=== PATIENT | male | born 1965 | race Two or more races ===

== ENCOUNTER 2025-04-24 08:22 | Inpatient (IN) | payer OTHER ==
[~2025-04-24] VITALS: Ht 188 cm; Wt 90.7 kg
[2025-04-24] MEDS ORDERED: XARELTO20 MG PO (09:24)
[2025-04-24] MEDS ORDERED: 0.9 % SODIUM CHLORIDE 1,000 ML IV STA (09:48)
[2025-04-24 10:43] LABS: BASO % 0.5 % (0.1-1.2); EOS # 0.07 (0.04-0.54); EOS % 1.1 % (0.7-7.0); LYMPH # 1.37 (1.18-3.74); LYMPH % 20.8 % (19.3-53.1); MEAN PLATELET VOLUME 10.20 fl (9.4-12.4); MONO # 0.56 (0.24-0.82); MONO % 8.5 % (4.7-12.5); NEUT # 4.54 (1.56-6.13); NEUT % 68.8 % (34.0-71.1); RED CELL DISTRIBUTION WIDTH 11.9 % (11.6-14.4)
[2025-04-24 11:11] LABS: INR 1.07
[2025-04-24 11:12] LABS: BUN CREA RATIO 19.0 (7.0-25.0); CREATININE SERUM 0.97 mg/dL (0.70-1.30); GFR 79.22; GLUCOSE FASTING 111.0 mg/dL (65-100); OSMOLALITY SERUM 286.0 MOSM/KG (275-295)
[2025-04-24] MEDS ORDERED: ROSUVASTATIN CALCIUM 10 MG TABLET PO SCH (12:25)
[2025-04-24] MEDS ORDERED: FAMOTIDINE/PF 20 MG in 0.9 % SODIUM CHLORIDE 8 ML IV PUSH SCH (12:25)
[2025-04-24] MEDS ORDERED: ENOXAPARIN SODIUM 80 MG/0.8 ML SYRINGE SUBCUTANEO SCH (12:25)
[2025-04-24] MEDS ORDERED: ACETAMINOPHEN 500 MG GEL..CAP PO PRN (12:30)
[2025-04-24] MEDS ORDERED: 0.9 % SODIUM CHLORIDE 1,000 ML IV SCH (12:30)
[2025-04-24] MEDS ORDERED: ENOXAPARIN SODIUM 80 MG/0.8 ML SYRINGE SUBCUTANEO ONE (14:12)
[2025-04-24] MEDS ORDERED: FAMOTIDINE/PF 20 MG/2 ML VIAL ONE (14:12)
[2025-04-24 15:45] LABS: URINE APPEARANCE Clear; URINE BILIRRUBIN Negative (NEGATIVE); URINE BLOOD Trace; URINE COLOR Yellow; URINE GLUCOSE Negative (NEGATIVE); URINE KETONE Negative (NEGATIVE); URINE LEUKOCYTE Negative; URINE NITRATE Negative; URINE PROTEIN Negative (NEGATIVE); URINE UROBILINOGEN 0.2 E.U./dl
[2025-04-24 15:49] LABS: URINE RBC 9.0 uL (0.0-20.8)
[2025-04-24 16:09] LABS: URINE EPITHELIAL CELLS 0.4 uL (0.0-38.8); URINE WBC 1.5 uL (0.0-23.2)
[2025-04-24 16:10] LABS: URINE BACTERIA 2.3 uL (0.0-1933); URINE CAST 0.00 uL (0.0-1.40)
[2025-04-24 16:44] VITALS: BP 135/85
[2025-04-24] MEDS ORDERED: FF) FLECAINIDE ACETATE 50MG TAB PO SCH (17:00)
[2025-04-24 17:40] VITALS: O2SAT 98
[2025-04-24 19:08] VITALS: BP 119/80; O2SAT 99
[2025-04-24 20:05] VITALS: O2SAT 98
[2025-04-25] VITALS (9 sets, daily range): BP systolic 101–118; BP diastolic 65–81; O2SAT 97–100
[2025-04-25 07:09] LABS: CHOL HDL RATIO 3.5 (0-5.0); HDL 26.0 mg/dl (40-60); LDL 42.0 mg/dl (0-130); TSH 2.56 uIU/mL (0.358-3.74); VLDL 23.0 (0-39)
[2025-04-25] MEDS ORDERED: METOPROLOL SUCCINATE 25 MG TAB.SR.24H PO NR (14:00)
[2025-04-25] MEDS ORDERED: FF) FLECAINIDE ACETATE 50MG TAB PO SCH (17:00)
[2025-04-25] MEDS ORDERED: FAMOTIDINE/PF 20 MG/2 ML VIAL ONE (19:26)
[2025-04-25] MEDS ORDERED: FAMOTIDINE/PF 20 MG in 0.9 % SODIUM CHLORIDE 8 ML IV PUSH SCH (21:00)
[2025-04-25] MEDS ORDERED: AMIODARONE HCL 900 MG in DEXTROSE 5 % IN WATER 500 ML IV SCH (22:45)
[2025-04-26] VITALS (9 sets, daily range): BP systolic 99–108; BP diastolic 66–74; O2SAT 90–99
[2025-04-26] MEDS ORDERED: METOPROLOL SUCCINATE 25 MG TAB.SR.24H PO SCH (09:00)
[2025-04-26] MEDS ORDERED: MIDAZOLAM HCL/PF 5 MG/ML VIAL IV ONE (13:00)
[2025-04-26] MEDS ORDERED: fentaNYL CITRATE 50 MCG/ML AMPUL IV ONE (13:00)
[2025-04-26] MEDS ORDERED: MIDAZOLAM HCL 2 MG/2 ML VIAL IV ONE (13:00)
[2025-04-26] MEDS ORDERED: AMIODARONE HCL 200 MG TABLET PO SCH (21:00)
[2025-04-27] VITALS (9 sets, daily range): BP systolic 90–104; BP diastolic 53–69; O2SAT 88–100
[2025-04-28] VITALS: O2SAT 98
[2025-04-28 02:41] VITALS: BP 94/58; O2SAT 97
[2025-04-28 04:00] VITALS: O2SAT 97
[2025-04-28] MEDS ORDERED: Crestor 10MG TABLET PO (09:12)
[2025-04-28] MEDS ORDERED: TOPROL XL25 M1 PO (09:12)
[2025-04-28] MEDS ORDERED: XARELTO20 MG PO (09:13)
[2025-04-28 09:24] VITALS: O2SAT 97
[2025-04-28 09:31] VITALS: BP 106/67; O2SAT 97
== END 2025-04-28 11:51 | disposition home or self-care (01) | DRG 310 ==
LOC: ER 08:23 → MEDJ 12:46 → SEC-K 12:46 → MEDJ 15:22
PROVIDERS: General Practice; ADMIT Internal Medicine; ATTEND Internal Medicine
PROC: 4A12X4Z Monitoring of Cardiac Electrical Activity, External Approach (ICD-10-PCS; principal; 2025-04-24)
PROC: B246ZZZ Ultrasonography of Right and Left Heart (ICD-10-PCS; 2025-04-24)
PROC: B246ZZ4 Ultrasonography of Right and Left Heart, Transesophageal (ICD-10-PCS; 2025-04-26)
DX: I48.91 Unspecified atrial fibrillation (principal); I48.92 Unspecified atrial flutter